=== PATIENT | male | born 1995 | race Caucasian/White ===

== ENCOUNTER 2018-05-20 13:47 | Emergency (ER) | payer SELFPAY ==
[~2018-05-20] VITALS: Ht 172.7 cm; Wt 79.0 kg
[2018-05-20] MEDS ORDERED: MOME13HF IH (14:13)
[2018-05-20] MEDS ORDERED: ALBUTEROL SULFATE HFA 90 MCG/PUFF 8 GM INHALER IH ONE (15:00)
[2018-05-20 15:25] VITALS: BP 115/75
== END 2018-05-20 15:43 | disposition home or self-care (01) ==
LOC: EMS 13:49
DX: J45.909 Unspecified asthma, uncomplicated (principal)
CPT/HCPCS: 94640; J3535

== ENCOUNTER 2018-05-22 20:59 | Emergency (ER) | payer MEDICAID ==
[~2018-05-22] VITALS: Ht 172.7 cm; Wt 77.3 kg
[~2018-05-22 20:59] MED LIST: MOME13HF IH
[2018-05-22] MEDS ORDERED: ALBUTEROL SULFATE 2.5 MG/0.5 ML NEB SOLUTION NEB ONE (22:00)
[2018-05-22] MEDS ORDERED: IPRATROPIUM BROMIDE 0.5 MG/2.5 ML NEB SOLUTION NEB ONE (22:00)
[2018-05-22 22:45] VITALS: BP 118/67
== END 2018-05-22 23:17 | disposition home or self-care (01) ==
LOC: EMS 21:00
DX: J45.909 Unspecified asthma, uncomplicated (principal); F17.210 Nicotine dependence, cigarettes, uncomplicated; Z79.899 Other long term (current) drug therapy
CPT/HCPCS: 94640